=== PATIENT | female | born 1975 | race Caucasian/White ===

== ENCOUNTER 2023-10-14 13:33 | Emergency (ER) | payer BC, SELFPAY ==
[2023-10-14 13:42] VITALS: BP 104/75
--- NOTE | 2023-10-14 15:17 | ED.GENMED ---
History of Present Illness
General
Chief Complaint: Skin Problem
Time Seen by Provider: 10/14/23 14:51
Travel History
Have you had any contact with someone who has COVID-19?: No
Do you have any symptoms of coronavirus? Fever > 100 degrees, chills, cough, shortness of breath, sore throat, loss of taste or smell, muscle aches, or headache?: No
History of Present Illness
History of Present Illness:
48-year-old female presents emergency department for evaluation of right axillary 'abscesses'. She had similar occurrence to the left axilla several weeks ago that is cleared up on its own. Has no prior history of this. 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
of MRSA. No fevers or chills
Past History
Past History
ED Past Medical History: Psychiatric and Other (recurrent strep infections)
ED Past Surgical History: None
Social History
Tobacco: Non-smoker
Alcohol: None
Drug: None
Personal: Single
Living: with family
Employment: Other (self employed, is a designer/writer.)
Family History
Family History: Other
Review of Systems
Review of Systems
Allergies reviewed?: Yes
All Other Systems: ROS reviewed and negative except as documented in HPI and ROS
Phy Exam
Physical Exam
Physical Exam:
GEN: Well appearing, NAD, WDWN
HEENT: Oral mucosa moist, no scleral icterus
Cardiac: Regular rate
Lung: No respiratory distress, no tachypnea
MSK: No gross deformity or injuries
Skin: Good color, no pallor or jaundice. Multiple fluctuant abscesses to the right axilla
Neuro: AO x3, moves all extremities freely
Psych: Calm, cooperative
Course
Vital Signs
Initial and Last Documented VS:
Initial Vital Signs
Temp Pulse Resp BP Pulse Ox
98.4 F 91 18 104/75 97
10/14/23 13:42 10/14/23 13:42 10/14/23 13:42 10/14/23 13:42 10/14/23 13:42
Last Documented Vital Signs
Temp Pulse Resp BP Pulse Ox
98.4 F 91 18 104/75 97
10/14/23 13:42 10/14/23 13:42 10/14/23 13:42 10/14/23 13:42 10/14/23 13:42
Procedures
Incision/Drainage/Joint Aspiration
Right axilla:
Anethesia: 1% Lidocaine with Epi
Preparation: cleaned with alcohol wipe
Type of procedure: incise
Nature of site: abscess
Description of abscess: greater than 3cm
Loculations broken up: Yes
How much fluid was obtained?: large amount
Fluid description: purulent
Treatment: left open for drainage
MDM/Problems Addressed
MDM/Problems Addressed:
Abscess is drained at the bedside, will start on doxycycline
*Critical Care Note
Total Time (30-74mins, 75-104mins- exclusive of procedures): Not Applicable
ED Attending Note
-
Portions of this chart may have been created with voice recognition software.� Occasional wrong word or��sound alike� substitutions may have occurred due to the inherent limitations of voice recognition software.
Discharge Plan
Departure
Patient Disposition: Home (Routine Discharge)
Date of Disposition: 10/14/23
Time of Disposition: 15:17
Patient with high blood pressure during this ER visit?: No
Discharge Problem:
Abscess of axilla, right
Instructions: Skin Abscess
Prescriptions:
New
doxycycline monohydrate 100 mg capsule
100 mg PO BID Qty: 14 0RF
No Action
drospirenone-ethinyl estradiol [[place]cella] 1 EACH tablet
1 ea PO DAILY
Restoril:
HS
Trileptal:
3 tab PO HS
Trileptal:
1 tab PO .QAM
Patient Comments:
Pt. does not know the strength
ibuprofen 600 MG tablet
600 mg PO Q6H Qty: 30 0RF
prednisone 50 MG tablet
50 mg PO DAILY 5 Days 0RF
ibuprofen 600 MG tablet
600 mg PO Q6H Qty: 30 0RF
amoxicillin-pot clavulanate 875 MG/125 MG tablet
1 tab PO Q12 Qty: 20 0RF
amoxicillin 500 mg tablet
500 mg PO BID 10 Days Qty: 20 0RF
prednisone 20 mg tablet
20 mg PO DAILY 3 Days Qty: 3 0RF
Referrals:
Preston Palomino, [Family Provider] -
Interventions
Interventions:
*Risk Screen - Suicide Last Done: 10/14/23 13:42
*General Assessment Last Done: 10/14/23 13:42
*Neglect/Abuse Screening Last Done: 10/14/23 13:42
*ED COVID-19 Vaccine History Last Done: 10/14/23 13:42
*Nursing Disposition Last Done: 10/14/23 15:39
Discharge Date and Time
Discharge Date/Time: 10/14/23 15:39
Print Language: INDONESIAN
== END 2023-10-14 15:39 | disposition home or self-care (01) ==
LOC: EMR 13:33
PROVIDERS: EMERGENCY PHYSICIAN Emergency Medicine; FAMILY PHYSICIAN Internal Medicine Pulmonary Disease
DX: L02.411 Cutaneous abscess of right axilla (principal); Z86.14 Personal history of Methicillin resistant Staphylococcus aureus infection; Z88.1 Allergy status to other antibiotic agents; Z88.2 Allergy status to sulfonamides
CPT/HCPCS: 99283; 10060